=== PATIENT | female | born 1980 | race Two or more races ===

== ENCOUNTER 2016-08-05 17:31 | Emergency (ER) | payer MEDICARE, MEDICAID ==
[~2016-08-05 17:31] MED LIST: FA-80.8 MG; FLUVOXAMINE MA100 M3; FLUVOXAMINE MA100 M3 PO; FOLIC ACID1 M1; FOLIC ACID1 M1 PO; IBUPROFEN800 M1 PO; IRON325 ( 65 ); LAMICTAL200 M2 PO; LAMICTAL200 MG; LAMOTRIGINE200 M2; NAPROSYN500 M1 PO; NORCO 5-325 TA1 EACH PO; OMEPRAZOLE20 M3; OMEPRAZOLE40 M2 PO; PERCOCET 5-3251 EACH PO; PRENATAL TABLE1 EAC3 PO; PRENATAL VITAMI1 TAB; PRILOSEC20 M1 PO; SENNA S TABLET1 EACH PO; SYNTHROID100 MCG; SYNTHROID75 MC1; SYNTHROID75 MC1 PO; TRIPLE NIPPLE; TRIPNIP TOP
== END 2016-08-05 19:40 ==
LOC: EDMED 17:31
DX: K56.49 Other impaction of intestine (principal); G40.909 Epilepsy, unspecified, not intractable, without status epilepticus; E66.01 Morbid (severe) obesity due to excess calories; Z79.899 Other long term (current) drug therapy